=== PATIENT | female | born 1985 | race African-American/Black ===

== ENCOUNTER 2022-10-01 20:09 | Emergency (ER) | payer OTHER ==
[~2022-10-01] VITALS: Ht 167.6 cm; Wt 68.0 kg
[2022-10-01 20:19] VITALS: BP 123/70
[2022-10-01] MEDS ORDERED: TETRACAINE 0.5% OPHTH DROPS 4ML RIGHTEYE ONE (21:45)
[2022-10-01] MEDS ORDERED: FLUORESCEIN SODIUM 1MG/STRIP RIGHTEYE ONE (23:00)
[2022-10-01] MEDS ORDERED: IBUP-1523 MT (23:22)
[2022-10-01] MEDS ORDERED: TOBR5DRO7 LEFTEYE (23:22)
== END 2022-10-01 23:46 | disposition home or self-care (01) ==
LOC: ER 20:09
DX: S05.02XA Injury of conjunctiva and corneal abrasion without foreign body, left eye, initial encounter (principal); Z88.0 Allergy status to penicillin; W22.8XXA Striking against or struck by other objects, initial encounter; Y93.89 Activity, other specified; Y92.89 Other specified places as the place of occurrence of the external cause; Y99.8 Other external cause status
CPT/HCPCS: 99281; 99283